=== PATIENT | female | born 1970 | race Caucasian/White ===

== ENCOUNTER 2024-03-02 06:49 | Day surgery (SDC) | payer OTHER, SELFPAY ==
[2024-02-27 10:33] VITALS: BMI 33.1
[2024-02-27 10:53] LABS: % Basophils 0.6 % (0-2); % Eosinophils 3.4 % (0-6); % Immature Granulocytes 0.5 % (0-0.5); % Lymphocytes 22.6 % (20.5-51.1); % Monocytes 9.8 % (1.7-9.3); % Neutrophils 63.1 % (42.2-75.2); Absolute Eosinophils 0.2 10^3/uL (0-0.7); Absolute Lymphocytes 1.5 10^3/uL (1.2-3.4); Absolute Monocytes 0.6 10^3/uL (0.1-0.6); Absolute Neutrophils 4.1 10^3/uL (1.4-6.5); Hematocrit 39.2 % (37.0-47.0); Hemoglobin 13.1 g/dL (12.0-16.0); Mean Corp Hgb Conc. 33.4 g/dL (33.0-37.0); Mean Corpuscular Hgb 30.5 pg (27.0-31.0); Mean Corpuscular Volume 91.2 fL (81.0-99.0); Mean Platelet Volume 11.8 fL (7.4-10.4); Nucleated Red Blood Cells % 0 %; Platelet Count 254 10^3/uL (130-400); Red Cell Dist. Width 12.8 % (11.5-14.5); White Blood Cell Count 6.5 10^3/uL (4.8-10.8)
[2024-02-27 11:10] LABS: Blood Urea Nitrogen 19 mg/dl (7-17); Calcium 9.6 mg/dl (8.4-10.2); Carbon Dioxide 27 mmol/L (22-30); Chloride 102 mmol/L (98-107); Estimated Creatinine Clearance 91 ml/min; Glucose 100 mg/dl (70-99); Potassium 4.6 mmol/L (3.5-5.1); Sodium 142 mmol/L (135-145); eGFR > 60.00
[2024-02-27 11:24] LABS: Beta HCG Quantitative < 2.39 mIU/ml
[2024-03-02] VITALS (9 sets, daily range): BP systolic 118–141; BP diastolic 69–78; BMI 33.1
[2024-03-02] MEDS: NEURONTIN 300 MG PO (10:52)
[2024-03-02] MEDS: TYLENOL 1000 MG PO (10:52)
[2024-03-02] MEDS: HEPARIN 5000 UNITS SC (10:57)
--- NOTE | 2024-03-02 15:16 | W.IMMPOSTOP ---
Surgical Immed Post Op Note
-
Primary Surgeon: Mai Washington DO
Assisting Surgeon: BAR García
Pre-op Diagnosis: Complex right adnexal cystic mass, possible endometrioma, hx menorrhagia and fibroids
Post-op Diagnosis: same
Procedure Performed: Robotic laparoscopic bilateral salpingo-oopherectomy
Anesthesia Type: general ET Dr. Dotson
Specimen / Cultures: 1. pelvic washings 2. right tube and ovary containing [id number] 3. left ovary and tube
Estimated Blood Loss: 5ml
Urine clear yellow.
Complications: none
Operative Findings: Uterus globular morphology, small subserosal fibroids. 4 superficial serosal cysts 5-10mm; right ovary with 4-5cm endometrioma and filmy adhesions to ovarian fossa.
Left ovary with superficial endometriosis implants, normal appearing tubes bilaterally. No other endometriosis seen.
Counts correct times 2.
Stable to recovery.
[2024-03-02] MEDS: TYLENOL 650 MG PO (17:23)
== END 2024-03-02 17:28 | disposition home or self-care (01) ==
LOC: SDS 06:49
PROVIDERS: ATTENDING PHYSICIAN Obstetrics & Gynecology; FAMILY PHYSICIAN Family Medicine
DX: D27.0 Benign neoplasm of right ovary (principal); N83.8 Other noninflammatory disorders of ovary, fallopian tube and broad ligament; N80.101 Endometriosis of right ovary, unspecified depth; D25.9 Leiomyoma of uterus, unspecified
CPT/HCPCS: 58661; 88305; 36415; 80048; 84702; 85025; 86850; 86900; 86901; 88112; 93005